=== PATIENT | male | born 2000 | race Caucasian/White ===

== ENCOUNTER 2021-02-26 20:28 | Emergency (ER) | payer SELFPAY ==
[~2021-02-26] VITALS: Ht 172.7 cm; Wt 84.4 kg
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
[2021-02-26] MEDS ORDERED: KETOROLAC TROMETHAMINE INJ 30 MG/ML VIAL ONE (21:46)
[2021-02-26] MEDS ORDERED: KETOROLAC TROMETHAMINE INJ 60 MG/2 ML VIAL IM ONE (22:00)
[2021-02-26] MEDS ORDERED: CYCL5TAB PO (22:29)
[2021-02-26] MEDS ORDERED: NAPR500T6 PO (22:29)
[2021-02-26 22:43] VITALS: BP 135/80
--- NOTE | 2021-02-26 22:43 | NUR ---
Patient discharged to home in stable condition. Written and verbal after care instructions given. Patient verbalizes understanding of instruction.
== END 2021-02-26 22:44 | disposition home or self-care (01) ==
LOC: ER 20:36
DX: S39.012A Strain of muscle, fascia and tendon of lower back, initial encounter (principal); Z88.1 Allergy status to other antibiotic agents; V43.52XA Car driver injured in collision with other type car in traffic accident, initial encounter; Y93.89 Activity, other specified; Y92.413 State road as the place of occurrence of the external cause; Y99.8 Other external cause status
CPT/HCPCS: 72110; 99283; J1885